=== PATIENT | female | born 1935 | race Caucasian/White ===

== ENCOUNTER 2019-12-17 14:19 | Outpatient (CLI) | payer MEDICARE, OTHER ==
[2019-12-17 15:39] LABS: BASOPHILS # (AUTO) 0.04 x10^3/uL (0-0.1); BASOPHILS % (AUTO) 1 % (0-1); EOSINOPHILS % (AUTO) 3 % (1-7); LYMPHOCYTES % (AUTO) 19 % (22-44); MD NO; MEAN CORPUSCULAR HEMOGLOBIN 32.9 pg (27.0-34.8); MEAN CORPUSCULAR HGB CONC 32.9 g/dL (32.4-35.8); MEAN CORPUSCULAR VOLUME 99.9 fL (80-100); MEAN PLATELET VOLUME 7.6 fL (7.4-10.4); MONOCYTES # (AUTO) 0.61 x10^3/uL (0.2-0.8); MONOCYTES % (AUTO) 8 % (2-9); NEUTROPHILS % (AUTO) 69 % (42-75); PLATELET COUNT 175 x10^3/uL (130-400); RED CELL DISTRIBUTION WIDTH 14.4 % (9.6-15.2)
[2019-12-17 15:58] LABS: CULTURE INDICATED? YES; MICROSCOPIC INDICATED
[2019-12-17 16:04] LABS: ALBUMIN 3.6 g/dL (3.4-5.0); ANION GAP 9 mmol/L (5-15); CALCIUM 10.1 mg/dL (8.5-10.1); CHLORIDE 104 mmol/L (98-107)
[2019-12-17 16:30] LABS: ALANINE AMINOTRANSFERASE 16 U/L (12-78); ALKALINE PHOSPHATASE 118 U/L (45-117); BILIRUBIN,TOTAL 1.1 mg/dL (0.2-1.0); CHOL/HDL RATIO 3.1; CHOLESTEROL, TOTAL 171 mg/dL (140-239); CREATININE 0.86 mg/dL (0.55-1.02); HDL CHOL % 32 % (28-40); HDL CHOLESTEROL (DIRECT) 55 mg/dL (40-60); LDL CHOLESTEROL,CALCULATED 97 mg/dL (54-169); LDL/HDL RATIO 1.8 (0.5-3.0); TOTAL PROTEIN 7.1 g/dL (6.4-8.2); TRIGLYCERIDES 95 mg/dL (50-200); VLDL CHOLESTEROL 19 mg/dL (0-25)
[2019-12-17 16:31] LABS: FOLATE LEVEL > 20.0 ng/mL (3.1-17.5)
== END 2019-12-17 23:59 | disposition home or self-care (01) ==
LOC: CFH 14:19
PROVIDERS: ATTEND Nurse Practitioner Primary Care
DX: E03.9 Hypothyroidism, unspecified (principal); R53.82 Chronic fatigue, unspecified; E55.9 Vitamin D deficiency, unspecified; E78.2 Mixed hyperlipidemia; D64.9 Anemia, unspecified; E88.81 Metabolic syndrome and other insulin resistance; R01.1 Cardiac murmur, unspecified; M81.0 Age-related osteoporosis without current pathological fracture; K21.9 Gastro-esophageal reflux disease without esophagitis; F51.01 Primary insomnia; Z79.899 Other long term (current) drug therapy
CPT/HCPCS: 36415; 80053; 80061; 81001; 82607; 82652; 82746; 83036; 84207; 84425; 84439; 84443; 85025; 87086

== ENCOUNTER 2021-06-02 14:09 | Inpatient (IN) | payer MEDICARE, OTHER ==
[~2021-06-02] VITALS: Ht 157.5 cm; Wt 55.9 kg
--- NOTE | 2021-06-02 14:40 | NUR ---
DAUGHTER AT . DAUGHTER REPORTS PT SENT FROM PCP FOR HEART & LUNG PROBLEMS, STATES, "FLUID IS BUILDING UP IN HER LUNGS". DENIES KNOWN HX OF CHF. HAS HEART MURMUR. PT HASN'T SEEN A PCP OR TAKEN MEDS IN 6 MONTHS OR MORE, STATES, "I DIDN'T THINK I NEEDED THEM". CRACKLES NOTED TO BILAT LUNG BASES. IV STARTED AND BLOOD DRAWN. ERP IN TO SEE PT. Addendum: 06/02/21 at 1709 by NADIR PT ALSO HAS SWELLING TO BILAT LOWER LEGS. PT WITH NO COMPLAINTS AT THIS TIME, DENIES SOB OR CP.
[2021-06-02 15:06] LABS: BASOPHILS % (AUTO) 1 % (0-1); EOSINOPHILS % (AUTO) 1 % (1-7); LYMPHOCYTES % (AUTO) 13 % (22-44); MEAN CORPUSCULAR HEMOGLOBIN 24.4 pg (27.0-34.8); MEAN PLATELET VOLUME 7.3 fL (7.4-10.4); MONOCYTES % (AUTO) 9 % (2-9); NEUTROPHILS % (AUTO) 77 % (42-75); PLATELET COUNT 338 x10^3/uL (130-400); RED BLOOD COUNT 4.43 x10^6/uL (3.82-5.3); RED CELL DISTRIBUTION WIDTH 25.4 % (9.6-15.2)
[2021-06-02 15:17] LABS: ALANINE AMINOTRANSFERASE 14 U/L (12-78); ALBUMIN 2.8 g/dL (3.4-5.0); ANION GAP 5 mmol/L (5-15); CHLORIDE 99 mmol/L (98-107); CREATININE 0.88 mg/dL (0.55-1.02)
[2021-06-02 15:27] LABS: ALKALINE PHOSPHATASE 75 U/L (45-117); BILIRUBIN,TOTAL 1.2 mg/dL (0.2-1.0); TOTAL PROTEIN 6.6 g/dL (6.4-8.2); TROPONIN I < 0.015 ng/mL (0.000-0.045)
[2021-06-02 15:42] LABS: FREE T4 (FREE THYROXINE) 1.16 ng/dL (0.76-1.46)
[2021-06-02 15:45] LABS: HYPOCHROMIA 2+; MICROCYTOSIS 1+; OVALOCYTES 1+; SPHEROCYTES 1+
[2021-06-02 15:46] LABS: ANISOCYTOSIS 2+
[2021-06-02 15:47] LABS: <PLATELET ESTIMATE> ADEQUATE; <PLT MORPHOLOGY> NORMAL PLT MORPH; SCHISTOCYTES 1+
--- NOTE | 2021-06-02 16:35 | NUR ---
SON & DAUGHTER PRESENT AT BS. MEAL TRAY ORDERED FOR PT. CRACKERS & WATER PROVIDED.
--- NOTE | 2021-06-02 17:42 | NUR ---
MEAL TRAY PROVIDED TO PT. PT STATES SHE HADN'T EATEN SINCE 0500 THIS AM. DAUGHTER ASSISTING PT AT BS.
[2021-06-02] MEDS ORDERED: ACETAMINOPHEN 325 MG TABLET PO PRN (18:00)
[2021-06-02] MEDS ORDERED: POLYETHYLENE GLYCOL 17 GM PACKET PO PRN (18:00)
[2021-06-02] MEDS ORDERED: THYROID MEDICATION PO (18:04)
--- NOTE | 2021-06-02 18:04 | NUR ---
ATTEMPTED TO MED REC. DAUGHTER STATES, "SHE HASN'T BEEN TAKING ANY MEDS. SHE TAKES A THYROID MEDICATION AND THAT'S IT."
[2021-06-02] MEDS ORDERED: ENOXAPARIN 40 MG/0.4 ML ONE (18:20)
[2021-06-02] MEDS: LEVOTHYROXINE 25 MCG TABLET PO SCH (18:29)
[2021-06-02 18:31] LABS: TROPONIN I < 0.015 ng/mL (0.000-0.045)
[2021-06-02] MEDS: ENOXAPARIN 40 MG/0.4 ML SQ SCH (18:33)
[2021-06-02 18:51] VITALS: BP 108/66
[2021-06-02 22:02] VITALS: BP 123/77
[2021-06-02] MEDS ORDERED: CYAN250013 PO (22:09)
[2021-06-02] MEDS ORDERED: OMNIPAQUE 350 MG/ML, 100ML BOTTLE ONE (23:02)
[2021-06-02] MEDS: MELATONIN 5 MG TABLET PO PRN (23:35)
[2021-06-02] MEDS: ONDANSETRON 2MG/ML, 2ML IVPush PRN (23:35)
[2021-06-03 01:34] LABS: TROPONIN I < 0.015 ng/mL (0.000-0.045)
[2021-06-03 02:01] VITALS: BP 111/71
[2021-06-03] MEDS ORDERED: NITROGLYCERIN 0.4 MG BOTTLE (25 TABS) SL PRN (03:30)
[2021-06-03] MEDS ORDERED: NITROGLYCERIN 0.4 MG/SPRAY SL PRN (03:30)
[2021-06-03] MEDS ORDERED: ALUMINUM/MAG/SIMETHICONE 30 ML UDC PO ONE (05:00)
[2021-06-03] MEDS: LEVOTHYROXINE 25 MCG TABLET PO SCH (05:47)
[2021-06-03] MEDS: ONDANSETRON 2MG/ML, 2ML IVPush PRN (05:59)
[2021-06-03 07:45] LABS: BASOPHILS % (AUTO) 1 % (0-1); EOSINOPHILS % (AUTO) 1 % (1-7); LYMPHOCYTES % (AUTO) 9 % (22-44); MEAN CORPUSCULAR HGB CONC 30.9 g/dL (32.4-35.8); MEAN PLATELET VOLUME 7.2 fL (7.4-10.4); MONOCYTES % (AUTO) 6 % (2-9); NEUTROPHILS % (AUTO) 83 % (42-75); PLATELET COUNT 306 x10^3/uL (130-400); RED BLOOD COUNT 4.04 x10^6/uL (3.82-5.3); RED CELL DISTRIBUTION WIDTH 25.4 % (9.6-15.2)
[2021-06-03 07:58] LABS: ALBUMIN 2.4 g/dL (3.4-5.0); ANION GAP 6 mmol/L (5-15); CHLORIDE 99 mmol/L (98-107); CHOLESTEROL, TOTAL 99 mg/dL (140-239); TRIGLYCERIDES 75 mg/dL (50-200); VLDL CHOLESTEROL 15 mg/dL (0-25)
[2021-06-03 08:08] LABS: % IRON SATURATION 3 % (20-55); ALANINE AMINOTRANSFERASE 13 U/L (12-78); ALKALINE PHOSPHATASE 68 U/L (45-117); BILIRUBIN,TOTAL 0.9 mg/dL (0.2-1.0); CHOL/HDL RATIO 3.4; CREATININE 0.84 mg/dL (0.55-1.02); FREE T4 (FREE THYROXINE) 1.04 ng/dL (0.76-1.46); HDL CHOL % 29 % (28-40); HDL CHOLESTEROL (DIRECT) 29 mg/dL (40-60); IRON LEVEL 13 mcg/dL (50-170); LDL CHOLESTEROL,CALCULATED 55 mg/dL (54-169); LDL/HDL RATIO 1.9 (0.5-3.0); TOTAL IRON BINDING CAPACITY 375 mcg/dL (250-450); TOTAL PROTEIN 5.8 g/dL (6.4-8.2)
[2021-06-03 08:26] VITALS: BP 113/68
[2021-06-03] MEDS: FUROSEMIDE 20 MG/2 ML IV SCH ×2 (09:02→17:50)
[2021-06-03] MEDS: methylPREDNISolone SOD SUCC 40 MG/ML IVPush SCH ×3 (09:02→21:09)
[2021-06-03 14:57] VITALS: BP 101/57
[2021-06-03] MEDS: ENOXAPARIN 40 MG/0.4 ML SQ SCH (17:50)
[2021-06-03 17:52] VITALS: BP 109/62
[2021-06-03 19:26] VITALS: BP 104/60
[2021-06-03] MEDS ORDERED: MAALOX/HYOSCYAMINE/LIDOCAINE 45 ML BTL PO ONE (19:30)
[2021-06-04 00:37] VITALS: BP 139/78
[2021-06-04] MEDS: MELATONIN 5 MG TABLET PO PRN ×2 (00:37→20:38)
[2021-06-04] MEDS: methylPREDNISolone SOD SUCC 40 MG/ML IVPush SCH ×4 (02:54→20:38)
[2021-06-04 05:28] LABS: BASOPHILS % (AUTO) 0 % (0-1); EOSINOPHILS % (AUTO) 0 % (1-7); LYMPHOCYTES % (AUTO) 8 % (22-44); MEAN CORPUSCULAR HEMOGLOBIN 24.2 pg (27.0-34.8); MEAN CORPUSCULAR HGB CONC 31.4 g/dL (32.4-35.8); MONOCYTES % (AUTO) 2 % (2-9); NEUTROPHILS % (AUTO) 91 % (42-75); PLATELET COUNT 320 x10^3/uL (130-400); RED BLOOD COUNT 4.12 x10^6/uL (3.82-5.3); RED CELL DISTRIBUTION WIDTH 25.7 % (9.6-15.2)
[2021-06-04 05:40] LABS: ANION GAP 3 mmol/L (5-15); CALCIUM 9.3 mg/dL (8.5-10.1); CHLORIDE 98 mmol/L (98-107)
[2021-06-04] MEDS: FUROSEMIDE 20 MG/2 ML IV SCH ×2 (06:25→17:16)
[2021-06-04] MEDS: LEVOTHYROXINE 25 MCG TABLET PO SCH (06:25)
[2021-06-04 08:03] VITALS: BP 115/71
[2021-06-04 12:19] VITALS: BP 93/51
[2021-06-04] MEDS: CALCIUM CARBONATE 500 MG TAB.CHEW PO PRN (15:56)
[2021-06-04] MEDS: ENOXAPARIN 40 MG/0.4 ML SQ SCH (17:17)
[2021-06-04 19:59] VITALS: BP 108/71
[2021-06-04] MEDS: MAALOX/HYOSCYAMINE/LIDOCAINE 45 ML BTL PO PRN (20:38)
[2021-06-05 00:46] VITALS: BP 100/60
[2021-06-05] MEDS: methylPREDNISolone SOD SUCC 40 MG/ML IVPush SCH ×3 (02:22→15:21)
[2021-06-05 05:09] LABS: BASOPHILS % (AUTO) 0 % (0-1); EOSINOPHILS % (AUTO) 0 % (1-7); LYMPHOCYTES % (AUTO) 5 % (22-44); MEAN CORPUSCULAR HEMOGLOBIN 24.2 pg (27.0-34.8); MEAN CORPUSCULAR HGB CONC 31.3 g/dL (32.4-35.8); MEAN PLATELET VOLUME 7.6 fL (7.4-10.4); MONOCYTES % (AUTO) 3 % (2-9); NEUTROPHILS % (AUTO) 93 % (42-75); PLATELET COUNT 394 x10^3/uL (130-400); RED BLOOD COUNT 4.31 x10^6/uL (3.82-5.3); RED CELL DISTRIBUTION WIDTH 25.6 % (9.6-15.2)
[2021-06-05 05:21] LABS: ANION GAP 2 mmol/L (5-15); CALCIUM 9.4 mg/dL (8.5-10.1); CHLORIDE 95 mmol/L (98-107)
[2021-06-05 07:19] VITALS: BP 90/45
[2021-06-05 08:39] VITALS: BP 99/62
[2021-06-05] MEDS: FUROSEMIDE 20 MG/2 ML IV SCH ×3 (08:39→20:19)
[2021-06-05] MEDS: LEVOTHYROXINE 25 MCG TABLET PO SCH (08:40)
[2021-06-05 15:29] VITALS: BP 91/57
[2021-06-05] MEDS: MAALOX/HYOSCYAMINE/LIDOCAINE 45 ML BTL PO PRN (17:35)
[2021-06-05] MEDS: ENOXAPARIN 40 MG/0.4 ML SQ SCH (17:35)
[2021-06-05] MEDS: CALCIUM CARBONATE 500 MG TAB.CHEW PO PRN (20:16)
[2021-06-05 20:18] VITALS: BP 114/72
[2021-06-05] MEDS: ALBUTEROL SULFATE 2.5 MG/3 ML NPPB SCH (21:01)
[2021-06-06] MEDS: MAALOX/HYOSCYAMINE/LIDOCAINE 45 ML BTL PO PRN ×2 (00:23→03:25)
[2021-06-06] MEDS: ONDANSETRON 2MG/ML, 2ML IVPush PRN ×2 (00:52→08:41)
[2021-06-06 01:14] VITALS: BP 118/68
[2021-06-06 05:12] LABS: BASOPHILS % (AUTO) 0 % (0-1); EOSINOPHILS % (AUTO) 0 % (1-7); LYMPHOCYTES % (AUTO) 6 % (22-44); MEAN CORPUSCULAR HGB CONC 31.2 g/dL (32.4-35.8); MEAN PLATELET VOLUME 7.3 fL (7.4-10.4); MONOCYTES % (AUTO) 7 % (2-9); NEUTROPHILS % (AUTO) 87 % (42-75); PLATELET COUNT 432 x10^3/uL (130-400); RED BLOOD COUNT 4.52 x10^6/uL (3.82-5.3); RED CELL DISTRIBUTION WIDTH 25.8 % (9.6-15.2)
[2021-06-06 05:20] LABS: ANION GAP 4 mmol/L (5-15); CALCIUM 9.3 mg/dL (8.5-10.1); CHLORIDE 92 mmol/L (98-107)
[2021-06-06 05:29] LABS: CREATININE 0.91 mg/dL (0.55-1.02)
[2021-06-06] MEDS: PANTOPRAZOLE 40MG TABLET PO SCH ×2 (06:21→08:15)
[2021-06-06] MEDS: LEVOTHYROXINE 25 MCG TABLET PO SCH (06:21)
[2021-06-06] MEDS: ALBUTEROL SULFATE 2.5 MG/3 ML NPPB SCH ×4 (07:00→20:15)
[2021-06-06 07:20] VITALS: BP 111/64
[2021-06-06] MEDS: FUROSEMIDE 20 MG/2 ML IV SCH ×3 (08:15→20:04)
[2021-06-06 12:40] VITALS: BP 101/59
[2021-06-06] MEDS: ENOXAPARIN 40 MG/0.4 ML SQ SCH (17:13)
[2021-06-06] MEDS: CALCIUM CARBONATE 500 MG TAB.CHEW PO PRN (18:08)
[2021-06-06 18:33] VITALS: BP 108/65
[2021-06-06 20:01] VITALS: BP 123/71
[2021-06-07 01:02] VITALS: BP 104/57
[2021-06-07] MEDS: CALCIUM CARBONATE 500 MG TAB.CHEW PO PRN ×2 (02:10→15:52)
[2021-06-07 05:26] LABS: BASOPHILS % (AUTO) 0 % (0-1); EOSINOPHILS % (AUTO) 1 % (1-7); LYMPHOCYTES % (AUTO) 10 % (22-44); MEAN CORPUSCULAR HEMOGLOBIN 23.8 pg (27.0-34.8); MEAN CORPUSCULAR HGB CONC 30.9 g/dL (32.4-35.8); MEAN PLATELET VOLUME 6.7 fL (7.4-10.4); MONOCYTES % (AUTO) 10 % (2-9); NEUTROPHILS % (AUTO) 79 % (42-75); PLATELET COUNT 380 x10^3/uL (130-400); RED CELL DISTRIBUTION WIDTH 25.7 % (9.6-15.2)
[2021-06-07 05:40] LABS: ANION GAP 3 mmol/L (5-15); CALCIUM 8.5 mg/dL (8.5-10.1); CHLORIDE 93 mmol/L (98-107)
[2021-06-07 05:43] LABS: CREATININE 0.73 mg/dL (0.55-1.02)
[2021-06-07] MEDS: PANTOPRAZOLE 40MG TABLET PO SCH (05:49)
[2021-06-07] MEDS: LEVOTHYROXINE 25 MCG TABLET PO SCH (05:49)
[2021-06-07 06:39] VITALS: BP 117/69
[2021-06-07] MEDS: ALBUTEROL SULFATE 2.5 MG/3 ML NPPB SCH (07:18)
[2021-06-07] MEDS ORDERED: ALBUTEROL SULFATE 2.5 MG/3 ML NPPB PRN (07:30)
[2021-06-07] MEDS: FUROSEMIDE 20 MG/2 ML IV SCH ×2 (07:51→15:52)
[2021-06-07 12:22] VITALS: BP 108/66
[2021-06-07] MEDS ORDERED: MELA5TAB14 PO (14:55)
[2021-06-07] MEDS ORDERED: ALBU2.5V NPPB (14:55)
[2021-06-07] MEDS ORDERED: POLY17PO5 PO (14:55)
[2021-06-07] MEDS ORDERED: Maalox/Hyoscyamine/Lidocaine PO (14:55)
[2021-06-07] MEDS ORDERED: ACET325T26 PO (14:55)
[2021-06-07] MEDS ORDERED: LEVO25TA2 PO (14:55)
[2021-06-07] MEDS ORDERED: NITR0.4T28 SL (14:55)
[2021-06-07] MEDS ORDERED: CALC200T24 PO (14:55)
[2021-06-07] MEDS ORDERED: PANT40TA6 PO (14:55)
[2021-06-07] MEDS ORDERED: METH4TAB2 PO (14:57)
[2021-06-07] MEDS ORDERED: FURO40TA6 PO (14:57)
== END 2021-06-07 17:00 | DRG 291 ==
LOC: ED 16:04 → SUATTDRO 16:21 → EDIP 16:24 → 5SO 18:02
PROVIDERS: ADMIT Internal Medicine; ATTEND Internal Medicine
DX: I11.0 Hypertensive heart disease with heart failure (principal); J96.01 Acute respiratory failure with hypoxia; E87.1 Hypo-osmolality and hyponatremia; I50.33 Acute on chronic diastolic (congestive) heart failure; Z20.822 Contact with and (suspected) exposure to COVID-19; D50.9 Iron deficiency anemia, unspecified; E03.9 Hypothyroidism, unspecified; E86.1 Hypovolemia; J44.9 Chronic obstructive pulmonary disease, unspecified; E88.09 Other disorders of plasma-protein metabolism, not elsewhere classified; F32.9 Major depressive disorder, single episode, unspecified; I95.9 Hypotension, unspecified; I07.1 Rheumatic tricuspid insufficiency; I27.20 Pulmonary hypertension, unspecified; I50.9 Heart failure, unspecified; Z87.891 Personal history of nicotine dependence; Z91.19 Patient's noncompliance with other medical treatment and regimen; Z79.899 Other long term (current) drug therapy; Z79.891 Long term (current) use of opiate analgesic; Z79.01 Long term (current) use of anticoagulants
CPT/HCPCS: 36415; 71045; 71275; 74018; 80048; 80053; 80061; 83540; 83550; 83880; 84439; 84443; 84484; 85025; 93005; 93306; 94640; G0378; J1650; J2405; J7613; Q9967; U0005; J1940; J2920; J7512; U0003

== ENCOUNTER 2021-07-02 20:13 | Emergency (ER) | payer MEDICARE, OTHER ==
[~2021-07-02] VITALS: Ht 160 cm; Wt 48.5 kg
[~2021-07-02 20:13] MED LIST: ACET325T26 PO; ALBU2.5V NPPB; CALC200T24 PO; CYAN250013 PO; FURO40TA6 PO; LEVO25TA2 PO; MELA5TAB14 PO; METH4TAB2 PO; Maalox/Hyoscyamine/Lidocaine PO; NITR0.4T28 SL; PANT40TA6 PO; POLY17PO5 PO; THYROID MEDICATION PO
[2021-07-02] MEDS ORDERED: SODIUM CHLORIDE 0.9% 1,000ML IVBOLUS ONE (20:30)
[2021-07-02] MEDS ORDERED: SODIUM CHLORIDE FLUSH 10ML SYR IVF ONE (20:30)
[2021-07-02 20:46] LABS: ALANINE AMINOTRANSFERASE 59 U/L (12-78); ALBUMIN 2.5 g/dL (3.4-5.0); ANION GAP 6 mmol/L (5-15); CALCIUM 9.2 mg/dL (8.5-10.1); CHLORIDE 95 mmol/L (98-107); CREATININE 1.43 mg/dL (0.55-1.02)
[2021-07-02 20:48] LABS: BASOPHILS % (AUTO) 0 % (0-1); EOSINOPHILS % (AUTO) 0 % (1-7); LYMPHOCYTES % (AUTO) 13 % (22-44); MEAN CORPUSCULAR HEMOGLOBIN 22.9 pg (27.0-34.8); MEAN CORPUSCULAR HGB CONC 30.5 g/dL (32.4-35.8); MONOCYTES % (AUTO) 7 % (2-9); NEUTROPHILS % (AUTO) 80 % (42-75); PLATELET COUNT 301 x10^3/uL (130-400); RED BLOOD COUNT 4.49 x10^6/uL (3.82-5.3); RED CELL DISTRIBUTION WIDTH 26.3 % (9.6-15.2)
[2021-07-02 20:49] LABS: ALKALINE PHOSPHATASE 90 U/L (45-117); BILIRUBIN,TOTAL 0.9 mg/dL (0.2-1.0); TOTAL PROTEIN 6.2 g/dL (6.4-8.2)
--- NOTE | 2021-07-02 21:12 | NUR ---
pt straight cathed with arun gaxiola helping. aseptic technique maintained throught. pt states she still feels ok, no n/v
[2021-07-02 21:30] LABS: <PLATELET ESTIMATE> ADEQUATE; ANISOCYTOSIS 2+; HYPOCHROMIA 1+; MICROCYTOSIS 2+; OVALOCYTES 1+; POLYCHROMASIA 1+; SMALL PLATELETS 1+; TARGET CELLS 1+; TEAR DROPS 1+
[2021-07-02 21:47] LABS: MICROSCOPIC NOT IND
[2021-07-02] MEDS ORDERED: PANTOPRAZOLE 40 MG IV IVPush ONE (22:00)
[2021-07-02] MEDS ORDERED: PANTOPRAZOLE 40 MG IV ONE (22:02)
--- NOTE | 2021-07-02 22:41 | NUR ---
pt provided some food and water. able to tolerate without difficulty. states she is feeling great
[2021-07-02 23:34] VITALS: BP 106/62
--- NOTE | 2021-07-02 23:41 | NUR ---
called [facility] to inform them that pt is going to come back. facility accepted
[2021-07-03] MEDS ORDERED: SODIUM CHLORIDE 0.9%, 500ML IVBOLUS ONE
== END 2021-07-03 01:33 | disposition home or self-care (01) ==
LOC: ED 21:09
DX: E86.0 Dehydration (principal); Z87.891 Personal history of nicotine dependence
CPT/HCPCS: 36415; 80053; 81003; 83690; 85025; 96361; 96374; 99283; C9113; J7030; J7040